=== PATIENT | male | born 1995 | race Caucasian/White ===

== ENCOUNTER 2021-07-18 18:25 | Emergency (ER) | payer OTHER ==
[~2021-07-18] VITALS: Ht 177.8 cm; Wt 86.4 kg
[2021-07-18 22:26] VITALS: BP 130/68
== END 2021-07-18 22:29 | disposition home or self-care (01) ==
LOC: M ED 18:25
DX: S43.004A Unspecified dislocation of right shoulder joint, initial encounter (principal); X50.9XXA Other and unspecified overexertion or strenuous movements or postures, initial encounter; Y92.138 Other place on military base as the place of occurrence of the external cause; Y99.1 Military activity; Z88.0 Allergy status to penicillin